=== PATIENT | female | born 1965 | race Caucasian/White ===

== ENCOUNTER 2019-11-19 10:29 | Observation (INO) | payer BC ==
[~2019-11-19] VITALS: Ht 162.6 cm; Wt 65.8 kg
[2019-11-19] VITALS (10 sets, daily range): BP systolic 95–120; BP diastolic 47–68; PULSE 60–73; TEMP 98.2–98.7
[~2019-11-19 10:29] MED LIST: SEA OMEGA 301 SGL PO
[2019-11-19] MEDS ORDERED: PROVERA 10MG10 MG PO (11:03)
--- NOTE | 2019-11-19 11:49 | NUR ---
Patients belongings bags x2 taken to PACU at this time.
--- NOTE | 2019-11-19 14:00 | NUR ---
Patient arrived to floor from PACU via bed. Patient is alert and oriented, answers questions appropriately. Incisions are CDI with bandaids. Post op checks initiated. Patient reports that pain is well controlled at this time, denies further needs, call light within reach.
[2019-11-20 00:27] VITALS: BP 89/42; PULSE 56; TEMP 98
[2019-11-20 04:29] VITALS: BP 94/49; PULSE 60; TEMP 97.6
--- NOTE | 2019-11-20 06:00 | NUR ---
Patient slept most the night. Restarted her fluids in the night because her BP was a little low. Sigel given for pain once during the night. She has been independent in the room. Eating and drinking without issues. Antibiotics given as ordered. No other changes at this time. Call light within reach.
[2019-11-20 07:00] VITALS: BP 102/42; PULSE 64; TEMP 98.2
[2019-11-20 07:25] LABS: BASO % 0.2 % (0.0-2.0); EOS # 0.1 (0.0-0.7); EOS % 0.4 % (0-4.0); GRAN # 10.5 (1.4-6.5); GRAN % 85.1 % (42.2-75.2); LYMPH # 0.9 (1.2-3.4); LYMPH % 7.3 % (20.0-51.0); MEAN CELL VOLUME 87 fl (80.0-100.0); MEAN CORPUSCULAR HGB CONC 33 g/dl (33.0-37.0); MEAN PLATELET VOLUME 10.9 fl (7.4-10.4); MONO # 0.8 (0.1-0.6); MONO % 6.4 % (1.7-9.3); PLATELET COUNT 168 K/mm3 (130-400); REDCELL DISTRIBUTION WIDTH-CV 13.3 % (11.5-14.5)
[2019-11-20 07:30] LABS: HEMATOCRIT 30.5 % (37.0-47.0); HEMOGLOBIN 9.9 g/dl (12.5-16.0); MEAN CORPUSCULAR HEMOGLOBIN 28 pg (27.0-31.0)
--- NOTE | 2019-11-20 08:00 | NUR ---
Patient in bed resting. Alert and oriented x 3. Assessment complete. Stated pain 6/10 to abd this morning, medicaitons given per orders. Fluids continue to infuse per orders to left forarm. Lap x 3 with bandaids are CDI. Encouraged patient to increase activity. Denies further needs at this time.
[2019-11-20] MEDS ORDERED: NORCO 325 MG-51 TAB PO (08:27)
[2019-11-20] MEDS ORDERED: FLAGYL500 MG PO (08:28)
[2019-11-20] MEDS ORDERED: AMOXICILLIN 8751 TAB PO (08:28)
--- NOTE | 2019-11-20 08:30 | NUR ---
Shift assessment completed. Pt is alert and oriented. Pt is independent. Reports pain scale a 2/10 localized in the abdomen. 3 incisions are present in the abdomen. Bandaids are clean, dry, and intact. Pt has a general diet. Ambulates Q1hr. Denies N/V. Soft, nondistended abdomen. Present bowel sounds. No bowel movements. Flatus is reported. Voiding without difficulty.
--- NOTE | 2019-11-20 09:40 | NUR ---
Discharge education provided to patient. Educated on when to call provider and all new medications. Patient educated on signs and symptoms of infection as well as activity. Denies further needs at this time. Patient independent in room, has been up ambulating in halls with student every hour, steady gait. Patient will call when rider is here.
--- NOTE | 2019-11-20 10:40 | NUR ---
INT discontinued by student. Patient out by wheelchair with surgical staff. Denies further needs a this time.
--- NOTE | 2019-11-20 10:46 | NUR ---
Initial visit; Patient thanked Rigger Chief for looking in on her and offering prayer and God's blessings.
== END 2019-11-20 10:40 | disposition home or self-care (01) ==
LOC: SDCO 10:29 → SURG 13:00 → SDCO 11-20 09:29 → SURG 11-20 09:29
PROVIDERS: ADMIT Surgery
DX: K35.32 Acute appendicitis with perforation, localized peritonitis, and gangrene, without abscess (principal); Z98.51 Tubal ligation status; Z20.828 Contact with and (suspected) exposure to other viral communicable diseases; Z79.899 Other long term (current) drug therapy
CPT/HCPCS: OP; G0378; J1170; J1885; J2405; J2543; J2704; J3010; J7030; J7120